=== PATIENT | female | born 1975 | race Caucasian/White ===

== ENCOUNTER 2016-03-07 01:19 | Emergency (ER) | payer OTHER ==
[2016-03-07 01:34] VITALS: TEMP 97.5
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
--- NOTE | 2016-03-07 02:23 | XR ---
EXAMINATION TYPE: XR thoracic spine 2V DATE OF EXAM: 03/07/2016 2:04 AM COMPARISON: NONE HISTORY: Back pain TECHNIQUE: 4 views FINDINGS: There is a mild thoracic dextroscoliosis. There is no compression fracture. Posterior eleme nts are intact. There is minor spurring of the endplates. There is no paraspinal mass. IMPRESSION: No fracture. Minimal thoracic dextroscoliosis.
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
--- NOTE | 2016-03-07 02:25 | XR ---
EXAMINATION TYPE: XR wrist complete RT DATE OF EXAM: 03/07/2016 2:04 AM COMPARISON: NONE HISTORY: Pain TECHNIQUE: 4 views FINDINGS: I see no fracture nor dislocation. Joint spaces are normal. There are no erosions. IMPRESSION: Negative right wrist exam.
[2016-03-07 02:50] VITALS: BP 119/56; PULSE 80; RESP 18
== END 2016-03-07 02:50 | disposition home or self-care (01) ==
LOC: EC 01:19
DX: T14.8 Other injury of unspecified body region (principal); J32.9 Chronic sinusitis, unspecified; F17.200 Nicotine dependence, unspecified, uncomplicated; Y04.2XXA Assault by strike against or bumped into by another person, initial encounter; Y92.009 Unspecified place in unspecified non-institutional (private) residence as the place of occurrence of the external cause; Z88.0 Allergy status to penicillin
CPT/HCPCS: 70450; 70486; 72070; 99285